=== PATIENT | male | born 1970 ===

== ENCOUNTER → 2024-06-14 | Outpatient (CLI) | payer OTHER ==
--- NOTE | 2024-06-14 13:03 | MR ---
EXAMINATION TYPE: MR shoulder LT wo con DATE OF EXAM: 06/14/2024 8:49 AM COMPARISON: Outside left shoulder x-ray May 25, 2024 CLINICAL INDICATION: Male, 54 years old with history of M25.512 L shoulder pain, Lt shoulder pain due to fall injury 3 weeks ago IV Contrast: cc (None if empty) TECHNIQUE: Multiplanar, multisequence imaging of the left shoulder is performed without contrast. FINDINGS: Rotator Cuff: Intact infraspinatus tendon. Intact supraspinatus tendon. Some increased signal in the distal subscapularis tendon with surrounding fluid. Acromioclavicular Joint: Moderate to severe narrowing and capsular hypertrophy with [id number] spurring. Loss of underlying fat plane is present. There is significant subcutaneous edema near this level Glenohumeral Joint: Moderate size joint effusion. Prominent bony projection from inferior medial aspe ct of the humeral head. Narrowing is seen most prominent inferiorly. Labrum: The labrum appears grossly intact given limitation of non-arthrogram study. Biceps Tendon: The long head of biceps is identified within bicipital groove. Bicipital groove is mary ewhat shallow. Intermediate signal is seen in the intracapsular portion. Bone marrow signal: Some heterogeneous increased signal at level of the acromioclavicular joint is pr esent. Other: No additional significant abnormality is appreciated. IMPRESSION: 1. Moderate to severe AC joint arthropathy. There is suspicion for underlying impingement. There is s uspicion for inflammatory change at this level. Correlate clinically. 2. There is tendinosis/partial tearing of the subscapularis tendon. There is some chronic tendinosis suspected of the intracapsular portion long head of biceps tendon. 3. There is moderate to severe glenohumeral joint arthropathy. [facility], , 06/14/2024 1:01 PM
== END | disposition home or self-care (01) ==
LOC: RADMRIMAIN 07:51
PROVIDERS: ATTEND Orthopaedic Surgery
DX: S46.012A Strain of muscle(s) and tendon(s) of the rotator cuff of left shoulder, initial encounter (principal); M19.012 Primary osteoarthritis, left shoulder; M67.814 Other specified disorders of tendon, left shoulder

== ENCOUNTER → 2024-07-11 | Outpatient (CLI) | payer OTHER ==
[2024-07-11 15:20] LABS: Anion Gap 10.6 mmol/L (4.00-12.00); Carbon Dioxide 27.4 mmol/L (21.6-31.8); Potassium 4.3 mmol/L (3.5-5.5)
[2024-07-11 16:00] LABS: Basophils # (A) 0.07 X 10*3/uL (0.00-0.10); Basophils % (A) 1.2 %; Eosinophils # (A) 0.13 X 10*3/uL (0.04-0.35); Eosinophils % (A) 2.2 %; HCT 45.3 % (39.6-50.0); HGB 15.1 g/dL (13.0-17.0); Lymphocytes # (A) 2.26 X 10*3/uL (0.90-5.00); Lymphocytes % (A) 39.1 %; MCH 31.3 pg (27.0-32.0); MCHC 33.3 g/dL (32.0-37.0); MCV 93.8 FL (80.0-97.0); Mean Platelet Volume 10.1 FL (9.5-12.2); Monocytes # (A) 0.46 X 10*3/uL (0.20-1.00); NRBC Per 100 WBC 0 X 10*3/uL (0.00-0.01); Neutrophils # (A) 2.84 X 10*3/uL (1.80-7.70); Neutrophils % (A) 49.2 %; Platelet Count 337 X 10*3/uL (140-440); RBC 4.83 X 10*6/uL (4.40-5.60); RDW 11.9 % (11.5-14.5); WBC 5.78 X 10*3/uL (4.50-10.00)
== END | disposition home or self-care (01) ==
LOC: LABPAT 09:13
PROVIDERS: ATTEND Orthopaedic Surgery
DX: Z01.818 Encounter for other preprocedural examination (principal); M75.42 Impingement syndrome of left shoulder
CPT/HCPCS: 80051; 85025; 93005

== ENCOUNTER 2024-07-19 07:36 | Day surgery (SDC) | payer OTHER ==
[2024-07-16 12:06] VITALS: BMI 27.7
--- NOTE | 2024-07-18 23:04 | HP ---
HISTORY AND PHYSICAL DATE OF SURGERY: 07/19/2024. HISTORY OF PRESENT ILLNESS: Crescencio Alcaraz is a 54-year-old gentleman seen with progressive left shoulder pain. We discussed options regarding treatment. He elected to proceed with left shoulder arthroscopy. Consent was obtained. PAST MEDICAL HISTORY: Noncontributory. PAST SURGICAL HISTORY: Noncontributory. DAILY MEDICATIONS: 1. Losartan. 2. Aleve. ALLERGIES: None reported. SOCIAL HISTORY: Denies tobacco use. PHYSICAL EVALUATION OF THE LEFT SHOULDER: Flexion is 140 degrees. Abduction is 110 degrees. External rotation is 45 degrees with pain and weakness. He has tenderness along the anterolateral acromion, rotator cuff insertion site, and long head biceps tendon. Impingement is positive at 90 degrees. Cross-body adduction sign is positive. Drop-arm sign is positive. Distal neurovascular exam is intact. IMAGING STUDIES: Radiographs of left shoulder, type 2 acromion, acromioclavicular joint osteoarthritis and cystic changes of the tuberosity. MRI of left shoulder, impingement, acromioclavicular joint osteoarthritis, rotator cuff tendon tear, biceps tendinitis, and moderate glenohumeral joint osteoarthritis. IMPRESSION: 1. Left shoulder impingement with rotator cuff tear. 2. Left shoulder acromioclavicular joint osteoarthritis. 3. Left shoulder biceps tendinitis. 4. Left shoulder moderate glenohumeral joint osteoarthritis. PLAN: Left shoulder arthroscopy with subacromial decompression, arthroscopic rotator cuff repair, Kay procedure, biceps tenodesis, and debridement. MMODL / IJN: [id number] /
[~2024-07-19 07:36] MED LIST: HYDROmorphone 0.5 MG/0.5 ML SYRINGE IVP PRN
[2024-07-19] MEDS: IV FLUID CONTINUATION 1,000 ML IV ONE (08:12)
[2024-07-19] MEDS: fentaNYL (PF) 50 MCG/ML 2 ML AMP IVP STA (08:31)
[2024-07-19] MEDS: MIDAZOLAM 2 MG/2 ML VIAL IV ONE (08:31)
[2024-07-19] MEDS: DEXAMETHASONE SOD PHOSPHATE 4 MG/ML 1 ML VIAL IV ONE (08:40)
[2024-07-19] MEDS: LACTATED RINGERS 1,000 ML IV SCH (08:40)
[2024-07-19] MEDS: ONDANSETRON 4 MG/2 ML VIAL IVP ONE (08:40)
--- NOTE | 2024-07-19 08:56 | P.ANPRN ---
Procedure Note - Anesthesia - Nerve Block Performed Left Interscalene Single Time Out Performed: Yes ([id number]) Date of Procedure: 07/19/24 Procedure Start Time: : Procedure Stop Time: :35 Location of Patient: PreOp Indication: Acute Post-Operative Pain, Requested by Surgeon Specifically requested for management of pain by DrLaura: Bobo Silver Sedation Type: Sedate with meaningful contact maintained Preparation: Sterile Prep Position: Supine Catheter: None Needle Types: Pajunk Needle Gauge: 21 Ultrasound used to visualize needle placement: Yes Ultrasound used to observe medication spread: Yes Injectate: 0.5% Ropivacaine (see comment for volume) (30cc+decadron 4mg) Blood Aspirated: No Pain Paresthesia on Injection Noted: No Resistance on Injection: Normal Image Stored and Saved: Yes Events: Uneventful and Well Tolerated
[2024-07-19] MEDS ORDERED: ROPIVACAINE 5 MG/ML 30 ML VIAL ONE (09:00)
[2024-07-19] MEDS ORDERED: DEXAMETHASONE SOD PHOSPHATE 4 MG/ML 1 ML VIAL ONE (09:00)
[2024-07-19] MEDS ORDERED: fentaNYL (PF) 50 MCG/ML 2 ML AMP ONE (09:00)
[2024-07-19] MEDS ORDERED: PROPOFOL 10 MG/ML 20 ML VIAL IV ONE (09:00)
[2024-07-19] MEDS ORDERED: PHENYLEPHRINE 10 MG/ML VIAL ONE (09:00)
[2024-07-19] MEDS ORDERED: MIDAZOLAM 2 MG/2 ML VIAL ONE (09:00)
[2024-07-19] MEDS ORDERED: SUCCINYLCHOLINE CHLORIDE 200 MG/10 ML VIAL IV ONE (09:00)
[2024-07-19] MEDS: ceFAZolin 2 GM in DEXTROSE 5% IN WATER 50 ML IVPB PRN (09:05)
[2024-07-19] MEDS: LACTATED RINGERS 1,000 ML IV ONE (10:13)
--- NOTE | 2024-07-19 10:47 | P.OP ---
Date of Procedure: 07/19/24 Preoperative Diagnosis: Left shoulder impingement Postoperative Diagnosis: 1. Left shoulder rotator cuff tear 2. Left shoulder impingement 3. Left shoulder partial long head biceps tendon tear 4. Left shoulder acromioclavicular joint osteoarthritis 5. Left shoulder labral tear 6. 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 Left shoulder arthroscopic rotator cuff repair 2. Left shoulder arthroscopic subacromial decompression 3. Left shoulder arthroscopic biceps tenodesis 4. Left shoulder arthroscopic Kay procedure 5. Left shoulder arthroscopic debridement labral tear Implants: 1Arthrex 5.5 swivel lock anchor 1Arthrex 4.75 swivel lock anchor Anesthesia: GETA, regional (Interscalene block) Surgeon: Bobo Silver [employer] Tech #1: Luis Lehman Estimated Blood Loss (ml): 10 Pathology: none sent Condition: stable Disposition: PACU Indications for Procedure: 54-year-old gentleman seen with progressive left shoulder pain. After having treatment options discussed, he elected to proceed with arthroscopy. Operative Findings: See description of procedure Description of Procedure: Patient underwent an interscalene block by department of anesthesia. The patient was then taken to the operative suite. The patient underwent a general anesthetic by the department of anesthesia. The patient was placed into a lateral position and secured. There was appropriate padding of the bony prominence. Left shoulder was then prepped and draped in normal sterile orthopedic fashion. We placed the extremity in 10 pounds of longitudinal traction. A posterior incision was now made for a posterior working portal site. The trocar and cannula were inserted into the glenohumeral joint. Arthroscopy was initiated. Spinal needle was now inserted anteriorly, to ascertain the anterior working portal site. An incision was now made in that area, a trocar was inserted followed by a probe. There was diffuse partial tearing along the biceps tendon. There were grade II chondromalacia changes throughout the glenohumeral joint. There was some superficial tearing of the superior open the anterior labral tissue. I placed a cannula through the anterior portal site. I passed a loop and tack stitch to the biceps tendon and then released it from the superior labral anchor. With the assistance of Kobi SHORE I punched a hole at the interval for insertion of an anchor. The suture line was passed through the eyelet of an Arthrex 4.75 swivel lock anchor. I placed the eyelet into the prepunched hole and held in position while Kobi SHORE tensioned the suture and deployed the anchor with good fixation noted. The residual suture limb was now clipped. We had a stable biceps tenodesis. I introduced a motorized shaver and debrided out the superficial labral tear. The residual labrum was probed and was found to be stable. The residual osteochondral surface again noted grade II chondromalacia without any osteochondral tears. Instruments were now removed from the glenohumeral joint. Utilizing the posterior working portal site, the trocar and cannula were inserted into the subacromial space. Arthroscopy initiated. I made an incision 2 fingerbreadths lateral to the acromion. I introduced my trocar followed by my ArthroCare ablator. I now began ablating thick subacromial bursal tissue, which exposed the undersurface of the anterior acromion. There was diminished subacromial space. There was a very prominent anterior acromion. A motorized bur was introduced and a subacromial decompression was performed. I also excised some osteophytes off the inferior aspect of the distal clavicle. The AC joint was visualized and noted to be fairly arthritic. The motorized bur was introduced in the anterior portal site and a Kay procedure was performed without difficulty, decompressing the AC joint nicely. I turned my attention to the rotator cuff. There was a 1.5 cm tear along the distal supraspinatus. I debrided the margins getting down to stable tendon tissue. I abraded the footprint with a motorized bur. With the assistance of Kobi SHORE I passed 3 everted mattress sutures through good bites of rotator cuff tendon. I punched a hole at the footprint area for insertion of an anchor. All 4 limbs of suture were passed through the eyelet of an Arthrex 5.5 swivel lock anchor. I placed the eyelet into the prepunch hole. I held it in position while Kobi SHORE tensioned all 6 limbs of suture and deployed the anchor with good fixation noted. All residual suture limbs were now clipped. We had good compression of the tendon along the entire footprint. Instruments now removed from the portal sites. All portal sites were approximated with nylon suture. Sterile dressings were applied followed by a shoulder sling. Luis branch PA assisted in all aspects of this case. The patient was awakened, transferred to a bed, and taken to recovery in stable condition.
[2024-07-19 10:51] VITALS: TEMP 97
[2024-07-19 11:47] VITALS: BP 133/88; PULSE 81; RESP 18
== END 2024-07-19 12:04 | disposition home or self-care (01) ==
LOC: OR 07:36
PROVIDERS: ATTEND Orthopaedic Surgery
DX: M75.112 Incomplete rotator cuff tear or rupture of left shoulder, not specified as traumatic (principal); S46.112A Strain of muscle, fascia and tendon of long head of biceps, left arm, initial encounter; M75.22 Bicipital tendinitis, left shoulder; S43.432A Superior glenoid labrum lesion of left shoulder, initial encounter; M19.012 Primary osteoarthritis, left shoulder; M75.42 Impingement syndrome of left shoulder; M94.212 Chondromalacia, left shoulder; G89.18 Other acute postprocedural pain; I10 Essential (primary) hypertension; Z79.899 Other long term (current) drug therapy
CPT/HCPCS: 29827; 29828; 29826; 29824; 64415; C1713 ×4; J2250; J0330; J1100; J0690; J2405; J3010; J2795; J2704; J2371